=== PATIENT | male | born 1990 | race Caucasian/White ===

== ENCOUNTER 2021-08-22 06:42 | Emergency (ER) | payer SELFPAY ==
[~2021-08-22] VITALS: Ht 165.1 cm; Wt 102.3 kg
[2021-08-22 06:56] LABS: COVID AG,FIA SOURCE NASAL SWAB
[2021-08-22 07:26] VITALS: BP 137/89
== END 2021-08-22 07:35 | disposition home or self-care (01) ==
LOC: EMS 06:43
DX: Z20.822 Contact with and (suspected) exposure to COVID-19 (principal)
CPT/HCPCS: 99283